=== PATIENT | male | born 1980 | race Caucasian/White ===

== ENCOUNTER 2017-02-16 22:11 | Emergency (ER) | payer SELFPAY ==
[~2017-02-16] VITALS: Ht 172.7 cm; Wt 95.5 kg
[2017-02-16] MEDS ORDERED: ONDANSETRON ODT 4 MG ONE (23:13)
[2017-02-16] MEDS ORDERED: MAALOX/HYOSCYAMINE/LIDOCAINE 45 ML BOTTLE ONE (23:13)
[2017-02-16] MEDS ORDERED: ONDANSETRON ODT 4 MG PO ONE (23:30)
[2017-02-16] MEDS ORDERED: MAALOX/HYOSCYAMINE/LIDOCAINE 45 ML BOTTLE PO ONE (23:30)
[2017-02-16 23:31] LABS: ASPARTATE AMINO TRANSFERASE 40 U/L (15-37); BLOOD UREA NITROGEN 18 mg/dL (7-18)
[2017-02-17 00:17] VITALS: BP 136/66
== END 2017-02-17 00:47 | disposition home or self-care (01) ==
LOC: ED 22:54
DX: R10.13 Epigastric pain (principal); R11.0 Nausea; B96.81 Helicobacter pylori [H. pylori] as the cause of diseases classified elsewhere
CPT/HCPCS: 36415; 76700; 80053; 81003; 83690; 85025; 86677

== ENCOUNTER 2017-10-29 00:01 | Emergency (ER) | payer OTHER ==
[~2017-10-29] VITALS: Ht 172.7 cm; Wt 91.9 kg
[2017-10-29] MEDS ORDERED: LIDOCAINE 1%, 20ML ONE (01:27)
[2017-10-29] MEDS ORDERED: IBUPROFEN 200 MG TABLET ONE (01:27)
[2017-10-29] MEDS ORDERED: ONDANSETRON ODT 4 MG ONE (01:27)
[2017-10-29] MEDS ORDERED: HYDROcodone/APAP 5/325 TABLET ONE (01:28)
[2017-10-29] MEDS ORDERED: LIDOCAINE 1%, 20ML SQ ONE (01:30)
[2017-10-29] MEDS ORDERED: HYDROcodone/APAP 5/325 TABLET PO ONE (01:30)
[2017-10-29] MEDS ORDERED: IBUPROFEN 200 MG TABLET PO ONE (01:30)
[2017-10-29] MEDS ORDERED: ONDANSETRON ODT 4 MG PO ONE (01:30)
[2017-10-29] MEDS ORDERED: CLINDAMYCIN 150 MG/ML, 6ML IM ONE (01:30)
[2017-10-29] MEDS ORDERED: CLINDAMYCIN 150 MG/ML, 6ML ONE (02:46)
[2017-10-29 03:18] VITALS: BP 151/81
== END 2017-10-29 03:22 | disposition home or self-care (01) ==
LOC: ED 02:35
DX: L02.416 Cutaneous abscess of left lower limb (principal); L03.116 Cellulitis of left lower limb; T63.301A Toxic effect of unspecified spider venom, accidental (unintentional), initial encounter; Z87.891 Personal history of nicotine dependence; Y93.89 Activity, other specified; Y99.8 Other external cause status; Y92.89 Other specified places as the place of occurrence of the external cause
CPT/HCPCS: 10060; 96372; 99284; Q0162

== ENCOUNTER 2017-11-01 22:51 | Emergency (ER) | payer SELFPAY ==
[~2017-11-01] VITALS: Ht 172.7 cm; Wt 92.1 kg
[2017-11-01 22:58] VITALS: BP 130/84
== END 2017-11-01 23:42 | disposition home or self-care (01) ==
LOC: ED 23:30
DX: L02.416 Cutaneous abscess of left lower limb (principal); Z87.891 Personal history of nicotine dependence
CPT/HCPCS: 99281